=== PATIENT | female | born 1955 | race Two or more races ===

== ENCOUNTER 2022-05-22 08:55 | Outpatient (CLI) | payer MEDICARE, OTHER | END 2022-05-22 23:59 | disposition home health service (06) | LOC: WOU 08:55 | PROVIDERS: ATTEND Surgery | DX: S21.002D Unspecified open wound of left breast, subsequent encounter (principal); X58.XXXD Exposure to other specified factors, subsequent encounter; E11.9 Type 2 diabetes mellitus without complications; Z79.4 Long term (current) use of insulin; Z79.84 Long term (current) use of oral hypoglycemic drugs | CPT/HCPCS: G0463 ==

== ENCOUNTER 2022-06-05 08:56 | Outpatient (CLI) | payer MEDICARE, OTHER | END 2022-06-05 23:59 | disposition home health service (06) | LOC: WOU 08:56 | PROVIDERS: ATTEND Surgery | DX: S21.002A Unspecified open wound of left breast, initial encounter (principal); W57.XXXA Bitten or stung by nonvenomous insect and other nonvenomous arthropods, initial encounter; Y92.89 Other specified places as the place of occurrence of the external cause; E11.9 Type 2 diabetes mellitus without complications; Z79.84 Long term (current) use of oral hypoglycemic drugs | CPT/HCPCS: 11042 ==

== ENCOUNTER 2022-06-19 13:29 | Outpatient (CLI) | payer MEDICARE, OTHER | END 2022-06-19 23:59 | disposition home health service (06) | LOC: WOU 13:29 | PROVIDERS: ATTEND Surgery | DX: S21.052A Open bite of left breast, initial encounter (principal); W57.XXXA Bitten or stung by nonvenomous insect and other nonvenomous arthropods, initial encounter; Y92.89 Other specified places as the place of occurrence of the external cause; E11.9 Type 2 diabetes mellitus without complications; Z79.84 Long term (current) use of oral hypoglycemic drugs; E66.9 Obesity, unspecified; Z68.41 Body mass index [BMI] 40.0-44.9, adult | CPT/HCPCS: 11043 ==